=== PATIENT | male | born 2005 | race Caucasian/White ===

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

== ENCOUNTER 2023-09-04 19:27 | Emergency (ER) | payer BC ==
[2023-09-04] MEDS: Acetaminophen/HYDROcodone 325-5 MG Tab PO ONE (21:08)
[2023-09-04] MEDS: Lidocaine 2% Viscous Solution 15 ML UD PO ONE (21:08)
[2023-09-04] MEDS: Benzocaine 20% Topical Spray UD MUCMEM ONE (21:08)
[2023-09-04 21:41] VITALS: BP 115/69; PULSE 105
== END 2023-09-04 21:41 | disposition home or self-care (01) ==
LOC: MW.ED 19:27
DX: K08.89 Other specified disorders of teeth and supporting structures (principal); Z88.1 Allergy status to other antibiotic agents; Z88.5 Allergy status to narcotic agent; Z88.8 Allergy status to other drugs, medicaments and biological substances; Z79.899 Other long term (current) drug therapy; Z75.8 Other problems related to medical facilities and other health care; Z90.49 Acquired absence of other specified parts of digestive tract
CPT/HCPCS: 99282; A9270; 99283

== ENCOUNTER 2025-01-25 23:54 | Emergency (ER) | payer BC ==
[2025-01-26] MEDS ORDERED: Sodium Chloride 0.9% 2.5 ML Syringe FLUSH PRN (00:17)
[2025-01-26] MEDS ORDERED: Sodium Chloride 0.9% 10 ML Syringe FLUSH PRN (00:17)
[2025-01-26 00:31] LABS: BASOPHILS ABSOLUTE AUTO 0.03 K/uL (0.00-0.20); BASOPHILS PERCENT AUTO 0.4 % (0.0-1.0); EOSINOPHILS ABSOLUTE AUTO 0.08 K/uL (0.00-0.45); EOSINOPHILS PERCENT AUTO 1.0 % (0.0-6.0); IMMATURE GRAN ABSOLUTE AUTO 0.01 K/uL (0.00-0.05); IMMATURE GRAN PERCENT AUTO 0.1 % (0.0-0.4); LYMPHOCYTES ABSOLUTE AUTO 3.30 K/uL (1.00-4.80); LYMPHOCYTES PERCENT AUTO 39.4 % (24.0-44.0); MEAN PLATELET VOLUME 9.6 fL (9.4-12.4); MONOCYTES ABSOLUTE AUTO 0.54 K/uL (0.00-0.80); MONOCYTES PERCENT AUTO 6.4 % (0.0-8.0); NEUTROPHILS ABSOLUTE AUTO 4.42 K/uL (1.80-7.70); NEUTROPHILS PERCENT AUTO 52.7 % (41.0-71.0); NRBC ABSOLUTE 0.00 K/uL (0.00-0.02); NRBC PERCENT 0.0 /100WBC (0.0-0.2); PLATELET COUNT,PLT 196 K/uL (150-400); RED BLOOD CELL COUNT 4.83 M/uL (4.52-5.90); WHITE BLOOD CELL COUNT,WBC 8.38 K/uL (3.9-11.3)
[2025-01-26] MEDS: Ketorolac 30 MG/ML SDV IVPUSH ONE (00:56)
[2025-01-26 01:05] LABS: A/G RATIO 1.2 (0.9-1.6); ALANINE AMINOTRANSFERASE,ALT 30.0 IU/L (14-63); ASPARTATE AMNIOTRANSFERASE,AST 15.0 IU/L (15-37); BILIRUBIN TOTAL 1.1 mg/dL (0.2-1.0); BLOOD UREA NITROGEN,BUN 19.0 mg/dL (7.0-18.0); CARBON DIOXIDE,CO2 27.2 mmol/L (21.0-32.0); CREATININE 1.3 mg/dL (0.8-1.3); EST CRCL DRUG DOSING (CG) 78.19 mL/min; GLUCOSE RANDOM 106.0 mg/dL (74-106); PROTEIN TOTAL,TP 7.5 g/dL (6.4-8.2)
[2025-01-26 01:08] LABS: ESTIMATED GFR 80.0 mL/min (>60)
[2025-01-26 01:12] LABS: CHLORIDE,CL 102.0 mmol/L (98-107); POTASSIUM,K 4.0 mmol/L (3.5-5.1); SODIUM,NA 138.0 mmol/L (136-148)
[2025-01-26 01:39] VITALS: BP 129/69; PULSE 85
== END 2025-01-26 01:38 | disposition home or self-care (01) ==
LOC: MW.ED 23:54
DX: S49.91XA Unspecified injury of right shoulder and upper arm, initial encounter (principal); F17.200 Nicotine dependence, unspecified, uncomplicated; Z88.1 Allergy status to other antibiotic agents; Z88.5 Allergy status to narcotic agent; Z88.8 Allergy status to other drugs, medicaments and biological substances; W18.30XA Fall on same level, unspecified, initial encounter
CPT/HCPCS: 36415; 73030-26-RT; 73030-RT; 80053; 84484; 85025; 93005; 96374; 99284; 99284-25; J1885